=== PATIENT | female | born 1990 | race Caucasian/White ===

== ENCOUNTER 2017-02-17 21:20 | Emergency (ER) | payer OTHER ==
[~2017-02-17] VITALS: Ht 167.6 cm; Wt 70.3 kg
[~2017-02-17 21:20] MED LIST: OXYC-323 PO
[2017-02-17 21:27] VITALS: BP 130/77
[2017-02-17] MEDS ORDERED: NAPR500T PO (21:35)
[2017-02-17] MEDS ORDERED: SULF1TAB24 PO (21:35)
--- NOTE | 2017-02-17 21:36 | PHYS DOC ---
Past Medical History Past Medical History: Other Additional Past Medical Histor: sebaceous cysts Past Surgical History: Other Additional Past Surgical Histo: Right breast Alcohol Use: Occasionally Drug Use: None Adult General Chief Complaint Chief Complaint: SKIN RASH/ABSCESS [facility] Patient is a 26 year old E male presents to the emergency department with complaints of left breast tenderness for 4 days. She reports a history of abscess on the breast and is concerned she may be developing an abscess. Reports no fever Review of Systems Review of Systems Constitutional: Denies fever or chills [] Eyes: Denies change in visual acuity, redness, or eye pain [] HENT: Denies nasal congestion or sore throat [] Respiratory: Denies cough or shortness of breath [] Cardiovascular: No additional information not addressed in HPI [] GI: Denies abdominal pain, nausea, vomiting, bloody stools or diarrhea [] : Denies dysuria or hematuria [] Musculoskeletal: Denies back pain or joint pain [] Integument: Left breast tenderness Neurologic: Denies headache, focal weakness or sensory changes [] Endocrine: Denies polyuria or polydipsia [] Allergies Allergies Allergies Coded Allergies Type Severity Reaction Last Updated Verified No Known Drug Allergies 12/09/14 No Physical Exam Physical Exam Constitutional: Well developed, well nourished, no acute distress, non-toxic appearance. []harynx moist, no oral exudates, nose normal. [] Eyes: PERRLA, EOMI, conjunctiva normal, no discharge. [] Neck: Normal range of motion, no tenderness, supple, no adenopathy Cardiovascular:Heart rate regular rhythm, no murmur [] Lungs & Thorax: Bilateral breath sounds clear to auscultation [] left breast exam unremarkable. There is no erythema, no skin changes, no dimpling of the skin, no palpable masses or fluctuant areas at the area of concern. The patient complains of tenderness at the area of concern Abdomen: Bowel sounds normal, soft, no tenderness, no masses, no pulsatile masses. [] Skin: Warm, dry, no erythema, no rash. [] EKG EKG [] Radiology/Procedures Radiology/Procedures [] Course & Med Decision Making Course & Med Decision Making Pertinent Labs and Imaging studies reviewed. (See chart for details) [] Patient became very tearful and demanded antibiotics. I explained to her that it was not indicated at this time. She began to cry and state that "also happen last time and had have surgery". She is very fearful of developing an abscess and refuses to listen to reason that antibiotics are indicated at this time. Costa Disclaimer Costa Disclaimer This electronic medical record was generated, in whole or in part, using a voice recognition dictation system. Departure Departure Impression: Primary Impression: Breast pain Disposition: HOME, SELF-CARE Condition: STABLE Referrals: NO PCP (PCP) Additional Instructions: Warm packs to the affected area. Please do not manipulate the area or poke and prod the area as this will increase the tenderness Scripts Naproxen (NAPROSYN) 500 Mg Tablet 500 MG PO BID Y for PAIN, #20 TAB Prov: AUSTIN MACK APRN 02/17/17 Sulfamethoxazole/Trimethoprim (BACTRIM DS TABLET) 1 Each Tablet 1 TAB PO BID, #14 TAB Prov: AUSTIN MACK APRN 02/17/17 AUSTIN MACK APRN Feb 17, 2017 21:36
== END 2017-02-17 21:47 | disposition home or self-care (01) ==
LOC: ER 21:20
DX: N64.4 Mastodynia (principal)
CPT/HCPCS: 99283

== ENCOUNTER 2018-02-10 19:57 | Emergency (ER) | payer OTHER | END 2018-02-10 20:41 | disposition home or self-care (01) | LOC: ER 19:57 | DX: N61.1 Abscess of the breast and nipple (principal) | CPT/HCPCS: 99283 ==